=== PATIENT | male | born 1995 | race Caucasian/White ===

== ENCOUNTER → 2019-05-28 13:29 | Outpatient (BNVA) | payer SELFPAY | PROVIDERS: Family Provider Family Medicine; PCP Family Medicine; Visit Provider Family Medicine | DX: R68.89 Other general symptoms and signs (principal) | CPT/HCPCS: 87400; 87635 ==

== ENCOUNTER 2020-09-29 06:00 | Outpatient (RCR) | payer OTHER, SELFPAY | END 2020-10-14 23:59 | disposition home or self-care (01) | LOC: MPT 06:00 | PROVIDERS: PCP Family Medicine; Referring Provider Nurse Practitioner Family; Visit Provider Nurse Practitioner Family | DX: M54.6 Pain in thoracic spine (principal); S29.9XXD Unspecified injury of thorax, subsequent encounter; X58.XXXD Exposure to other specified factors, subsequent encounter; G89.29 Other chronic pain | CPT/HCPCS: 97140; 97161 ==